=== PATIENT | female | born 1980 | race African-American/Black ===

== ENCOUNTER 2016-11-07 14:08 | Emergency (ER) | payer OTHER ==
--- NOTE | ~2016-11-07 | CT16 ---
[facility] A Service of [facility] RADIOLOGY TEXT RESULTS PATIENT: JC JOLLY LOCATION: [facility] : 84 UNIT #: [id number] AGE: [address]: Grant Wilkinson MD SEX: F ORDER DR: [id number] [facility] [address] [place], [place] [address] [id number] MR#: [id number] Acc #: [id number] NAME: JC JOLLY. : 1980 SEX: F STUDY DATE/TIME: 11/07/2016 17:52 UNIT: [facility] ROOM: STUDY DESCRIPTION: CT Angio Chest for PE Attending Physician: Grant Wilkinson M.D. Ordering Physician: Grant Wilkinson M.D. Primary Care Physician: Dutch Mcqueen M.D. MEDICAL IMAGING REPORT This report is preliminary unless electronic signature is present EXAM CT angiogram chest with IV contrast HISTORY Shortness of air and wheezing for 2 days. Elevated D-dimer. FINDINGS IV contrast-enhanced CT angiogram of the chest was performed with 3-D reconstructions. This CT exam was performed with one or more of the following radiation dose reduction techniques: Automatic exposure control, adjustment of mA and/or kV according to patient size, and iterative reconstruction. No pulmonary infiltrates or effusions. No pulmonary embolus is identified. No adenopathy. Normal caliber thoracic aorta. Mild left upper thoracic curve and mid-right thoracic curve. IMPRESSION 1. No acute findings. No active disease in the lungs. No pulmonary infiltrates. 2. No evidence of pulmonary embolus. 3. Normal caliber thoracic aorta. Dictated by... Nick Charles M.D. THIS IS AN ELECTRONICALLY VERIFIED REPORT Nick Charles M.D. at 11/07/2016 10:25 PM DFL/psc TD: 11/07/2016 20:50 JOB #: [id number] [facility] A Service of [facility] RADIOLOGY TEXT RESULTS PATIENT: JC JOLLY [id number] 84 UNIT #: [id number] AGE: [address]: Grant Wilkinson MD SEX: F ORDER DR: MEDICAL IMAGING REPORT Page 1 of 1 COPY
--- NOTE | ~2016-11-07 | CR72 ---
[facility] A Service of [facility] RADIOLOGY TEXT RESULTS PATIENT: JC JOLLY LOCATION: [facility] : 84 UNIT #: [id number] AGE: [address]: Grant Wilkinson MD SEX: F ORDER DR: [id number] [facility] [address] [place], [place] [address] [id number] MR#: [id number] Acc #: [id number] NAME: JC JOLLY : 1980 SEX: F STUDY DATE/TIME: 11/07/2016 15:50 UNIT: [facility] ROOM: STUDY DESCRIPTION: CR Chest Single View Portable Attending Physician: Grant Wilkinson M.D. Ordering Physician: Grant Wilkinson M.D. Primary Care Physician: Dutch Mcqueen M.D. MEDICAL IMAGING REPORT This report is preliminary unless electronic signature is present EXAM Frontal chest, 11/07/2016 INDICATIONS 36-year-old female with hand swelling, bad cough and shortness of air for a week. Hypertension. TECHNIQUE Frontal chest compared with 05/18/2015. FINDINGS There is reverse S-shaped scoliosis. Cardiac silhouette enlarged but stable, vascularity within normal limits, lungs appear clear and there is no pneumothorax. IMPRESSION 1. Cardiomegaly, otherwise negative frontal chest. Scoliosis. Dictated by... Leon Veras M.D. THIS IS AN ELECTRONICALLY VERIFIED REPORT Leon Veras M.D. at 11/07/2016 8:43 PM EUGENE/karl TD: 11/07/2016 18:17 JOB #: [id number] MEDICAL IMAGING REPORT Page 1 of 1 COPY
--- NOTE | ~2016-11-07 | EKG ---
PATIENT: JC JOLLY UNIT #: [id number] Ventricular Rate: 76 BPM Atrial Rate: 76 BPM P-R Interval: 146 ms QRS Duration: 96 ms Q-T Interval: 364 ms QTC Calculation(Bezet): 409 ms P Heflin: 44 degrees Calculated R [place]: 64 degrees Calculated T [place]: 24 degrees Diagnosis Line: Normal sinus rhythm Diagnosis Line: Possible Left atrial enlargement Diagnosis Line: Nonspecific T wave abnormality Diagnosis Line: Abnormal ECG Diagnosis Line: When compared with ECG of 17-MAY-2015 23:07, Diagnosis Line: Nonspecific T wave abnormality now evident in Diagnosis Line: Inferior leads Diagnosis Line: Confirmed by MIRIAM LAGOS MD ([id number]) on Diagnosis Line: 11/07/2016 3:47:09 PM INTERPRETING MD: YOLIS ARREGUIN
[~2016-11-07 14:08] MED LIST: BACTRIM DS TABL1 TA1 PO; FLEXERIL10 MG PO; IBUPROFEN600 MG PO; IBUPROFEN800 MG PO; LEXAPRO; LORTAB 5/500 TA1 TA1 PO; NAPROSYN500 MG PO; VIBRAMYCIN100 M1 PO; WATER PILL
[2016-11-07 15:39] LABS: BASOPHIL% 0.5 % (0-2.5); EOSINOPHIL# 0.2 X10e3 (0-0.7); EOSINOPHIL% 2.5 % (0.0-7.0); HEMOGLOBIN 10.3 gm/dL (12.0-16.0); LYMPHOCYTE# 1.8 X10e3 (1.0-3.5); LYMPHOCYTE% 22.5 % (17.0-45.0); MEAN CELL VOLUME 77.2 FL (83-96); MEAN CORPUSCULAR HEMOGLOBIN 24.2 PG (28-34); MEAN CORPUSCULAR HGB CONC 31.3 g/dL (30-36); MEAN PLATELET VOLUME 8.1 FL (6.5-11.5); MONOCYTE# 0.7 X10e3 (0-1.0); MONOCYTE% 9.2 % (3.0-12.0); NEUTROPHIL# 5.3 X10e3 (1.5-7.1); NEUTROPHIL% 65.3 % (40-75); PLATELET COUNT 319 X10e3 (140-420); RED BLOOD COUNT 4.28 X10e (3.90-5.30); WHITE BLOOD COUNT 8.1 X10e3 (4.0-10.5)
[2016-11-07 15:41] LABS: DIFF IND NO
[2016-11-07 15:59] LABS: PARTIAL THROMBOPLASTIN TIME 25.3 SECONDS (23.5-31.3)
[2016-11-07 16:04] LABS: ALBUMIN SERUM 3.1 g/dL (3.5-5.0); BILIRUBIN, DIRECT 0.1 mg/dL (0.0-0.2); BILIRUBIN,INDIRECT 0.4 mg/dL (0.0-0.9); BILIRUBIN,TOTAL 0.5 mg/dL (0.2-2.0); BUN/CREATININE RATIO 17.77; CALCIUM SERUM 9.1 mg/dL (8.4-10.2); CREATININE SERUM 0.9 mg/dL (0.6-1.4); GLOM FILT RATE Estimated 96.8 mL/min (>60); PROTEIN TOTAL SERUM 7.5 g/dL (6.0-8.3)
[2016-11-07 16:05] LABS: POTASSIUM 3.1 mmol/L (3.5-5.1)
[2016-11-07 16:07] LABS: POC - CKMB 2.3 ng/mL (0.0-7.9); POC - TROPONIN <0.05 ng/mL (<=0.05)
== END 2016-11-07 19:48 | disposition home or self-care (01) ==
LOC: CED 14:08
PROVIDERS: Emergency Medicine
DX: J20.9 Acute bronchitis, unspecified (principal); F17.200 Nicotine dependence, unspecified, uncomplicated; Z86.718 Personal history of other venous thrombosis and embolism
CPT/HCPCS: 36415; 71010; 71275; 80048; 80076; 82553; 83880; 84484; 84703; 85025; 85379; 85610; 85730; 93005; 94640; 99284; Q9967